=== PATIENT | male | born 2000 | race Caucasian/White ===

== ENCOUNTER 2020-07-23 09:20 | Emergency (ER) | payer OTHER, SELFPAY ==
[2020-07-23 09:26] VITALS: BP 127/73; PULSE 95; RESP 18; TEMP 36.6; O2SAT 100
--- NOTE | 2020-07-23 09:37 | ED.URI ---
HPI - URI/Sore Throat General Chief Complaint: Upper Respiratory Infection Stated Complaint: SORE THROAT Time Seen by Provider: 07/23/20 09:30 Source: patient Mode of arrival: ambulatory Limitations: no limitations History of Present Illness HPI Narrative: Seymour Grewal is a 19 yo male with no PMH who has had an sore throat since the weekend which is gotten continually worse. It is difficult for him to talk or swallow states it does not hurt as once he just sits still. He has been had difficulty swallowing food and liquids. . Voice is muffled Patient has a severe allergy to Latex Related Data Allergies Allergy/AdvReac Type Severity Reaction Status Date / Time latex Allergy Rash Verified 07/23/20 09:31 Review of Systems Review of Systems: Narrative: CONSTITUTIONAL: Denies fever, chills, sweats. EYES: Denies visual changes, redness, discharge. ENT: Denies rhinorrhea, congestion, severe swelling sore throat, difficulty swallowing but is not drooling, no otalgia. CARDIOVASCULAR: Denies chest pain, palpitations, edema. RESPIRATORY: Denies dyspnea, wheezing, cough GASTROINTESTINAL: Denies abdominal pain, nausea, vomiting, diarrhea. GENITOURINARY: Denies dysuria, hematuria, abnormal discharge SKIN: Denies rash or itching. NEUROLOGIC: Denies numbness, or focal weakness. PSYCHIATRIC: Denies anxiety or depression. REPLACED BY [facility] Past Medical History Medical History No active medical problems Family History Family History Other No active medical problems Social History Social History (Updated 07/23/20 @ 09:48 by Kaya Cabral CNP) Smoking status: Never smoker Alcohol intake: current Comments At time of signature, I agree with nursing past medical, surgical, social and family history. There is no relevant family history pertinent to the presenting complaint. Exam Narrative: Exam Narrative: GENERAL: This is a well-nourished, well-developed patient, in mild distress. HEAD: normocephalic, atraumatic. EYES: Sclera clear/white. Vision is grossly intact. EARS: External ears normal, auditory canals clear and without drainage, TMs normal without perforation. Hearing grossly intact. NOSE: External nose normal without nasal discharge, nares without redness, no rhinorrhea. THROAT: Mucous membranes moist, posterior pharynx no teeth erythema with exudate, 2+ tonsillar edema, near touching at top NECK: Neck supple, tender submandibular LN CARDIOVASCULAR: Regular rate and rhythm without murmurs, gallops, or rubs. RESPIRATORY: Clear to auscultation. Breath sounds equal bilaterally. No wheezes, rales, or rhonchi. GASTROINTESTINAL: Abdomen soft, non-tender, SKIN: warm, intact with no suspicious lesions or rash, good texture and turgor. NEURO: awake, alert, and oriented to person, place and time. There were no obvious focal neurologic abnormalities. Steady gait EXTREMITIES: Normal range of motion. BACK: Nontender without deformity Course Course Emergency Course: Patient here with sore throat x5 days with increasing difficulty with swallowing and pain Given Decadron 8 mg in the office and started on high-dose prednisone, prednisone x4 days-if worsening, go to ER Otherwise hydrate well take medication as prescribed Vital Signs Vital signs: Vital Signs Temperature 97.9 F 07/23/20 09:26 Pulse Rate 95 07/23/20 09:26 Respiratory Rate 18 07/23/20 09:26 Blood Pressure 127/73 07/23/20 09:26 Pulse Oximetry 100 07/23/20 09:26 Temperature 97.9 F 07/23/20 09:26 Pulse Rate 95 07/23/20 09:26 Respiratory Rate 18 07/23/20 09:26 Blood Pressure 127/73 07/23/20 09:26 Pulse Oximetry 100 07/23/20 09:26 MDM - URI/Sore Throat Differential Diagnosis Differential diagnosis: Likely upper respiratory infection, viral infection, pharyngitis and other Lab Data Labs: Strep Screen Pre
== END 2020-07-23 10:22 | disposition home or self-care (01) ==
PROVIDERS: Emergency Provider Nurse Practitioner
DX: J02.0 Streptococcal pharyngitis (principal)
CPT/HCPCS: 87081; 87880; 96372; 99203; G0463; J1100

== ENCOUNTER 2022-09-30 08:38 | Emergency (ER) | payer OTHER, SELFPAY ==
--- NOTE | 2022-09-30 08:40 | ED.URI ---
HPI - URI/Sore Throat General Chief Complaint: Upper Respiratory Infection Stated Complaint: cold flu Time Seen by Provider: 09/30/22 08:40 Source: patient and RN notes reviewed History of Present Illness HPI Narrative: Patient is a 21-year-old male who presents to urgent care with complaints of cough, congestion since the weekend. Patient states he felt better on Monday and worse again on . Denies any fevers, nausea or vomiting. No other acute complaints. No acute distress noted. Patient aware of the plan of care. Some parts of this dictation were generated by voice recognition software and may contain typographical and/or grammatical inaccuracies. Related Data Home Medications Medication Instructions Recorded Confirmed No Home Medications 09/30/22 09/30/22 Allergies Allergy/AdvReac Type Severity Reaction Status Date / Time latex Allergy Rash Verified 09/30/22 09:02 Review of Systems Review of Systems: CONSTITUTIONAL: Denies fever, chills, or sweats. EYES: Denies visual changes, redness, or discharge. ENT: Denies rhinorrhea, congestion, sore throat, or otalgia. CARDIOVASCULAR: Denies chest pain, palpitations, or edema. RESPIRATORY: Reports of cough, chest congestion GASTROINTESTINAL: Denies abdominal pain, nausea, vomiting, or diarrhea. GENITOURINARY: Denies dysuria or hematuria. SKIN: Denies rash or itching. MUSCULOSKELETAL: Denies back pain, joint pain, or myalgia. NEUROLOGIC: Denies headache, numbness, or weakness. All other systems reviewed are negative, except as documented in HPI. PMFSH Past Medical History Medical History No active medical problems Family History Family History Other No active medical problems Social History Social History (Updated 07/23/20 @ 09:48 by Kaya Cabral, SHUN) Smoking status: Never smoker Alcohol intake: current Comments At the time of my signature, I reviewed and agree with the nursing past medical, surgical, social, and family history. There is no relevant family history pertinent to the patient complaint. Exam Narrative: GENERAL: This is a well-nourished, well-developed patient, in no apparent distress. HEAD: normocephalic, atraumatic. EYES: PERRL. Sclera clear/white. Vision is grossly intact. EARS: External ears normal, auditory canals clear and without drainage, TMs normal without perforation. Hearing grossly intact. NOSE: External nose normal with no obvious nasal discharge, nares without redness, clear rhinorrhea. THROAT: Mucous membranes moist, posterior pharynx clear. Moderate postnasal drainage NECK: Neck supple, non-tender without lymphadenopathy CARDIOVASCULAR: Regular rate and rhythm without murmurs, gallops, or rubs. RESPIRATORY: nonproductive cough noted on exam.Clear to auscultation. Breath sounds equal bilaterally. No wheezes, rales, or rhonchi. SKIN: warm, intact with no suspicious lesions or rash, good texture and turgor. NEURO: awake, alert, and oriented to person, place and time. There were no obvious focal neurologic abnormalities. EXTREMITIES: No clubbing, cyanosis, or edema. Course Course Level of Care: Express Care Visit Vital Signs Vital signs: Vital Signs Temperature 99 F 09/30/22 08:47 Pulse Rate 109 H 09/30/22 08:47 Respiratory Rate 16 09/30/22 08:47 Blood Pressure 130/75 09/30/22 08:47 Pulse Oximetry 99 09/30/22 08:47 Oxygen Delivery Room Air 09/30/22 08:47 Temperature 99 F 09/30/22 08:47 Pulse Rate 109 H 09/30/22 08:47 Respiratory Rate 16 09/30/22 08:47 Blood Pressure 130/75 09/30/22 08:47 Pulse Oximetry 99 09/30/22 08:47 Oxygen Delivery Room Air 09/30/22 08:47 reviewed MDM - URI/Sore Throat MDM Narrative Medical decision making narrative: advised patient to use Mucinex [id number] for symptom relief. May use Benadryl or a carter
[2022-09-30 08:47] VITALS: BP 130/75; PULSE 109; RESP 16; TEMP 37.2; O2SAT 99
== END 2022-09-30 09:10 | disposition home or self-care (01) ==
PROVIDERS: Emergency Provider Nurse Practitioner Family
DX: J00 Acute nasopharyngitis [common cold] (principal)
CPT/HCPCS: 99211; G0463